=== PATIENT | male | born 1960 | race Hispanic/Latino ===

== ENCOUNTER → 2021-04-16 | Day surgery (SDC) | payer SELFPAY ==
[~2021-04-16] MED LIST: LABETALOL HCL 5 MG/ML 20ML VIAL ONE; OR PHACO EYE KIT ONE; POVIDONE IODINE 0.05% 0.05 % ML PO ONE; PREOP PHACO EYE KIT ONE
[2021-04-16 14:50] VITALS: BP 178/99
== END | disposition home or self-care (01) ==
LOC: OR 12:50
PROVIDERS: ATTEND Ophthalmology
DX: H25.11 Age-related nuclear cataract, right eye (principal); E11.9 Type 2 diabetes mellitus without complications; I10 Essential (primary) hypertension; E78.5 Hyperlipidemia, unspecified; I45.10 Unspecified right bundle-branch block; F17.210 Nicotine dependence, cigarettes, uncomplicated; Z01.812 Encounter for preprocedural laboratory examination; Z20.822 Contact with and (suspected) exposure to COVID-19; Z79.82 Long term (current) use of aspirin; Z79.84 Long term (current) use of oral hypoglycemic drugs
CPT/HCPCS: 66982; J3490; U0002; V2632